=== PATIENT | male | born 1980 | race Caucasian/White ===

== ENCOUNTER 2024-10-12 09:05 | Emergency (ER) | payer OTHER ==
[2024-10-12] VITALS (14 sets, daily range): BP systolic 136–161; BP diastolic 80–96
[~2024-10-12] VITALS: Ht 182.9 cm; Wt 126.0 kg
[2024-10-12] MEDS ORDERED: SODIUM CHLORIDE 0.9% 1,000 ML IV ONE (09:45)
[2024-10-12] MEDS ORDERED: KETOROLAC TROMETHAMINE 15 MG/ML SDV IV ONE ×2 (09:45→13:15)
[2024-10-12 10:14] LABS: BASO% 0.1 % (0-3); EOS% 0.2 % (0-8); HEMATOCRIT 40.6 % (39.0-50.0); HEMOGLOBIN 13.1 g/dl (14.0-18.0); IMMATURE GRANULOCYTES 0.2 % (0.0-5.0); LYMPH% 5.3 % (15-41); MEAN CORPUSCULAR HGB 29.4 pG CALC (26.0-32.0); MEAN CORPUSCULAR HGB CONC 32.3 g/dL CAL (32.0-36.0); MONO% 7.3 % (2-13); NEUT# 12.54 thou/uL (1.82-7.42); NEUT% 86.9 % (42-76); RED BLOOD COUNT 4.46 mill/uL (4.70-6.10); RED CELL DISTRI WIDTH 12.5 % (11.5-15.5)
[2024-10-12] MEDS ORDERED: ONDANSETRON HCl 4 MG/2 ML SDV IV ONE (10:15)
[2024-10-12 10:31] LABS: ALBUMIN 4.3 g/dL (3.2-5.0); BILIRUBIN, TOTAL 1.6 mg/dL (0.2-1.3); CREATININE 1.5 mg/dL (0.7-1.3); POTASSIUM 4.4 mmol/l (3.5-5.1); TOTAL PROTEIN 7.1 g/dL (6.3-8.2)
[2024-10-12 10:37] LABS: URINE BILIRUBIN - DIPSTICK Negative (NEGATIVE); URINE BLOOD DIPSTICK Moderate (NEGATIVE); URINE GLUCOSE - DIPSTICK Negative (NEGATIVE); URINE KETONE 15 mg/dL (NEGATIVE); URINE LEUK ESTERASE Negative (NEGATIVE); URINE NITRITE - DIPSTICK Negative (Negative); URINE PH 5.5 (4.5-8.0); URINE PROTEIN - DIPSTICK Trace mg/dL (NEG-TRACE); URINE SPECIFIC GRAVITY 1.025; URINE UROBILINOGEN - DIPSTICK 0.2 E.U./dL (0.2)
[2024-10-12 10:38] LABS: URINE COLOR Yellow
[2024-10-12 10:44] LABS: URINE BACTERIA RARE hpf; URINE HYALINE CAST RARE lpf (NONE-RARE); URINE MUCUS FEW hpf (NONE-FEW)
[2024-10-12] MEDS ORDERED: TORADOL PO (13:10)
[2024-10-12] MEDS ORDERED: TAMSULOSIN0.4 MG PO (13:10)
[2024-10-12] MEDS ORDERED: CEPHALEXIN500 M1 PO (13:10)
[2024-10-12] MEDS ORDERED: ZOFRAN4 MG/TAB PO (13:10)
[2024-10-12] MEDS ORDERED: HYDROCO/APAP1 TA9 PO (13:10)
== END 2024-10-12 13:30 | disposition home or self-care (01) | DRG 694 ==
LOC: ED 09:05
PROVIDERS: Family Medicine
DX: N13.2 Hydronephrosis with renal and ureteral calculous obstruction (principal); R91.1 Solitary pulmonary nodule; I50.22 Chronic systolic (congestive) heart failure; Z87.442 Personal history of urinary calculi
CPT/HCPCS: J1885; J2405